=== PATIENT | male | born 1945 | race Caucasian/White ===

== ENCOUNTER → 2019-07-08 | Outpatient (CLI) | payer MEDICARE ==
--- NOTE | 2019-07-08 16:01 | XR ---
EXAMINATION TYPE: XR cervical spine comp DATE OF EXAM: 07/08/2019 TECHNIQUE: Frontal, lateral, oblique, swimmers, and open mouth view of the cervical spine are obtaine d. HISTORY: LEFT UPPER BACK MUSCLE SPASM neck pain. COMPARISON: None FINDINGS: The cervical spine is visualized in its entirety from C1 thru the top of T1 level, it is s traightened in alignment without evidence of acute fracture or dislocation. The pre-vertebral soft t issue appears within normal limits. The C1-C2 articulation is within normal limits on the open mouth view. Vertebral body heights are maintained. Mild to moderate disc space narrowing C5-C6 level. Mode rate to advanced disc space narrowing C6-C7 level. Mild disc space narrowing C7-T1 level. Large bridg ing osteophytes anteriorly C4-C5 and C5-C6 level. Moderate to large anterior spurring C6-C7 level. La rge bridging osteophyte C7-T1 level anteriorly. Oblique images show marginal spurring encroaching on the bilateral neural foramina C6-C7 level. Overlying soft tissue is unremarkable. IMPRESSION: As above.
== END | disposition home or self-care (01) ==
LOC: RADXRMAIN 15:28
PROVIDERS: ATTEND Internal Medicine
DX: M99.71 Connective tissue and disc stenosis of intervertebral foramina of cervical region (principal)
CPT/HCPCS: 72050